=== PATIENT | male | born 1995 | race Caucasian/White ===

== ENCOUNTER 2024-09-19 12:05 | Outpatient (RCR) | payer OTHER, SELFPAY ==
--- NOTE | 2024-09-21 09:50 | HO.PHP ---
Desmond Ibanez called to report he will not show up to [facility] on 09/20/24, his scheduled start date. Desmond was again absent on 09/21/24. Pt did not call so policy writer reached out to Desmond, left him a voicemail. Pt did not call back so a call was made to his [facility] located on [address] [place] [address] . Staff at the fci reported Desmond was in bed sleeping, no safety concerns. Staff at the fci was informed that Desmond would be discharged from [facility] due to his inability to start the program and attend as agreed upon at intake, Desmond can call to reschedule a start date and intake should he decide he can attend the 2 week program to completion in the future. Staff at [facility] stated they will inform Desmond.
== END 2024-09-19 23:59 | disposition home or self-care (01) ==
LOC: HO.PHPA 12:05
PROVIDERS: Visit Provider Psychiatry & Neurology Psychiatry
DX: F31.9 Bipolar disorder, unspecified (principal); F43.10 Post-traumatic stress disorder, unspecified
CPT/HCPCS: 90791

== ENCOUNTER 2025-05-02 13:11 | Outpatient (AMB) | payer OTHER, SELFPAY ==
--- OUTSIDE RECORDS SUMMARY | 2025-04-27 11:06 | XMS_ITS | Encounter Summary ---
Author Organization [facility] Address [address] [place] [address] Care Team Providers Care Corporate Risk Analyst Name Role Phone Sosa Yamile Primary Care Provider [phone] Reason for Referral * Consultation (Routine) - Authorized Specialty Diagnoses / Procedures Referred By Contact Referred To Contact Podiatry / Orthopaedic Surgery Diagnoses Sprain of left ankle Osmani Escobar PA [address] [place] [id number] Phone: tel: fax: Orthopedic Surgery [facility] [address] [address] Phone: tel: fax: Referral ID Status Reason Start Date Expiration Date Visits Requested Visits Authorized [id number] Authorized Specialty Services Required 04/27/2025 04/27/2026 1 1 Reason for Visit * Reason Comments Ankle Pain Encounter Details Date Type Department Care Team (Late st Contact Info) Description 04/27/2025 11:06 AM EDT - 04/27/2025 11:53 AM EDT Emergency [facility] Emergency [address] [place] [address] Sprain of left ankle, initial encounter (Primary Dx) Discharge Disposition: Home or Self Care Social History Tobacco Use Types Packs/Day Years Used Date Smoking Tobacco: Every Day Cigarettes Smokeless Tobacco: Never Alcohol Use Standard Drinks/Week Comments Not Currently 0 (1 standard drink = 0.6 oz pur e alcohol) Interpersonal Safety Answer Date Record ed Physical Abuse 03/21/2025 Verbal Abuse 03/21/2025 Sex and Gender Information Value Date Recorded Sex Assigned at Male 09/05/2024 12:56 PM EST Legal Sex Male 8:58 AM EST Gender Identity Male 09/05/2024 12:56 PM EST Sexual Orientation Straight 09/05/2024 12 :56 PM EST documented as of this encounter Last Filed Vital Signs Vital Sign Reading Time Taken Comments Blood Pressure 141/105 04/27/2025 10:45 AM EDT Pulse 114 04/27/2025 10:45 AM EDT Temperature 36.9 C (98.4 F) 04/27/2025 10:45 AM EDT Respiratory Rate 22 04/27/2025 10:45 AM EDT Oxygen Saturation 99% 04/27/2025 10:45 AM EDT Inhaled Oxygen Concentration - - Weight 127 kg (280 lb) 04/27/2025 10:45 AM EDT Height 180.3 cm (5' 11 ) 04/27/2025 10:45 AM EDT Body Mass Index 39.05 04/27/2025 10:45 AM EDT documented in this encounter Discharge Summaries * Hernandez Jeffries RN - 04/27/2025 11:53 AM EDT Pt seen and cleared for d/c by ED provider, d/c instructions reviewed. Rx'd medication education provided, all questions answered. Pt assisted to [employer] via wheelchair, left without incident. documented in this encounter Discharge Instructions * Discharge Instructions* GEORGE Powell - 04/27/2025 11:22 AM EDT X-ray showing no acute fracture, signs of old injury are present Use crutches and be nonweightbearing for the next several days Can transition to crutches and brace after that but should be off the crutches within 1 week Follow-up with orthopedist if pain persist greater than 1 to 2 weeks Take pain medicine as needed as prescribed Ice therapy twice a time for pain as needed as directed * Attachments The following attachments cannot be sent through Care Everywhere. * Ankle Sprain ([place]) * Ankle Sprain: Rehab Exercises ([place]) documented in this encounter Medications at Time of Discharge albuterol HFA (PROAIR HFA ; PROVENTIL HFA ; VENTOLIN HFA) 90 mcg/actuation inhaler Inhale by mouth. 10/12/2023 bacitracin 500 unit/gram ointment 06/12/2024 busPIRone (BUSPAR) 30 mg tablet 09/01/2024 cetirizine (ZyrTEC) 10 mg tablet Take 1 tablet (10 mg total) by mouth. 10/12/2023 clotrimazole-betamet hasone (LOTRISONE) 1-0.05 % cream 03/14/2024 Daily Fiber, psyllium-aspart, 3 gram powder in packet 06/26/2024 famotidine (PEPCID) 20 mg tablet 04/12/2024 ketorolac (TORADOL) 10 mg tablet Take 1 tablet (10 mg total) by mouth every 6 (six) hours if needed for moderate pain for up to 5 days. 20 tablet 04/27/2025 lamoTRIgine (LaMICtal) 25 mg tablet Take 1 tablet (25 mg total) by mouth 1 (one) time each day for 7 days, THEN 1 tablet (25 mg total) 2 (two) times a day. 67 each 03/23/2025 lidocaine (LIDODERM) 5 % patch 06/28/2024 magnesium oxide 500 mg capsule Take 1 capsule by mouth at bedtime. 07/14/2024 omeprazole (PriLOSEC) [address] capsule Take 1 capsule (20 mg total) by mouth 1 (one) time each day. 07/21/2024 ondansetron (ZOFRAN) 4 mg tablet 06/28/2024 ondansetron ODT (ZOFRAN-ODT) 4 mg disintegrating tablet Take 1 tablet (4 mg total) by mouth. 10/07/2023 prazosin (MINIPRESS) 2 mg capsule Take 3 capsules (6 mg total) by mouth. 07/12/2023 promethazine (PHENERGAN) 50 mg tablet Take 1 tablet (50 mg total) by mouth. 03/09/2024 propranoloL (INDERAL) 20 mg tablet 09/12/2024 Siladryl SA 12.5 mg/5 mL liquid Take 5 mL (12.5 mg total) by mouth. 10/12/2023 simethicone (MYLICON,GAS-X) 125 mg capsule 06/30/2024 simvastatin (ZOCOR) 40 mg tablet 07/05/2024 Ventolin HFA 90 mcg/actuation inhaler 09/04/2024 documented as of this encounter Ordered Prescriptions Prescription Sig Dispense Quantity Refills Last Filled Start Date End Date ketorolac (TORADOL) 10 mg tablet Take 1 tablet (10 mg total) by mouth every 6 (six) hours if needed for moderate pain for up to 5 days. 20 tablet 04/27/2025 documented in this encounter Discharge Disposition Disposition Code Departure Means Destination Comment s Home or Self Care documented in this encounter Progress Notes * Hernandez Jeffries RN - 04/27/2025 11:53 AM EDT Air cast applied, crutches education provided. Hernandez Jeffries RN 04/27/25 1153 * Reanna Salgado RN - 04/27/2025 10:39 AM EDT Four days ago he was in the gym and rolled his left ankle. Swelling noted. * GEORGE Powell - 04/27/2025 10:30 AM EDT HPI Chief Complaint Patient presents with Ankle Pain HPI left ankle pain and swelling after rolling it while at the gym yesterday. States he injured hisankle before. Has been able to bear weight but with some discomfort. Reports some swelling but no bruising bleeding numbness tingling weakness. No other injuries. [place] Coma Scale Score: 15 Patient History Past Medical History: Diagnosis Date Anxiety Asthma Chronic kidney disease Depression Sleep apnea Past Surgical History: Procedure Laterality Date ESOPHAGOGASTRODUODENOSCOPY No family history on file. Social History Tobacco Use Smoking status: Every Day Types: Cigarettes Smokeless tobacco: Never Substance Use Topics Alcohol use: Not Currently Drug use: Yes Types: Marijuana/Cannabis Review of Systems Review of Systems Physical Exam ED Triage Vitals [04/27/25 1045] Temp Heart Rate Resp BP 36.9 ??C (98.4 ??F) (!) 114 22 (!) 141/105 SpO2 Temp Source Heart Rate Source Patient Position 99 % Oral -- Sitting BP Location FiO2 (%) Right arm;Upper -- Physical Exam GENERAL: Well developed, no acute distress, morbidly obese HEENT: Normocephalic and atraumatic, EOMI NECK: Supple, trachea is midline RESP: No respiratory distress after initially being documented tachypneic CARDIOVASCULAR: Regular rate after initially being documented tachycardic GASTROINTESTINAL: Abdomen is soft, non distended MUSCULOSKELETAL: Left ankle swelling and tenderness over the lateral malleolus, distal CMS intact, limited range of motion secondary to pain but can plantarflex and dorsiflex SKIN: Warm and dry NEUROLOGIC: At baseline, no acute focal deficits PSYCHIATRIC: Calm and cooperative ED Course & MDM Clinical Impressions as of 04/27/25 1217 Sprain of left ankle, initial encounter Medical Decision Making DDX: Fracture, dislocation, sprain, strain, other soft tissue injuries Vital signs reviewed, tachycardia and tachypnea documented but normal on physical exam likely elevated during triage due to exertion and morbid obesity Pulse oximetry reviewed and found to be > 94% on room air Physical exam as above Nursing notes reviewed X-rays negative for obvious fracture dislocation acute bony abnormality chronic osseous abnormalitynoted but no point tenderness over this area Social determinants of health considered including housing follow-up social and financial support Patient deemed appropriate for discharge with symptomatic treatment, recommendations to follow-up with primary care doctor / specialist with return precautions provided Procedures Procedure: Splint Application Distal CMS intact prior to splint Stirrup brace applied and fitted appropriately by myself or under my supervision from another staffmember of the ED Distal CMS intact after splint Crutches provided GEORGE Powell 04/27/25 1240 Cosigned by Liyah Patel MD at 04/27/2025 8:42 PM EDT documented in this encounter Plan of Treatment Scheduled Referrals Name Type Priority Associated Diagnoses Order Schedule Ambulatory referral to Orthopedic Outpatient Referral Routine 1 Occurrence s starting 04/27/2025 until 04/27/2026 documented as of this encounter Procedures Procedure Name Priority Date/Time Associated Diagnosis Comments XR ANKLE 3+ VIEWS LEFT STAT 04/27/2025 11:00 AM EDT documented in this encounter Results * XR Ankle 3+ Views Left (04/27/2025 11:00 AM EDT) Anatomical Region Laterality Modality Lower Extremities, Ankle Left Radiogr aphic Imaging 04/27/2025 11:2 1 AM EDT Impressions 04/27/2025 11:22 AM EDT FINDINGS/IMPRESSION: Soft tissue swelling without evidence for acute fracture. Normal alignment. There is a osseous fragment in the dorsal soft tissues anterior to the talus that may be from remote injury. -------- FINAL REPORT -------- Dictated By: Martín Lux Dictated Date: 04/27/2025 11:21 ET Assigned Physician: Martín Lux Reviewed and Electronically Signed By: Martín Lux Signed Date: 04/27/2025 11:22 ET Workstation ID: [id number] Transcribed By: Self Edit Transcribed Date: 04/27/2025 11:21 ET Narrative 04/27/2025 11:22 AM EDT XR ANKLE 3+ VIEWS LEFT INDICATION: pain TECHNIQUE: XR ANKLE 3+ VIEWS LEFT COMPARISON: No priors available. Procedure Note Martín Lux MD - 04/27/2025 XR ANKLE 3+ VIEWS LEFT INDICATION: pain TECHNIQUE: XR ANKLE 3+ VIEWS LEFT COMPARISON: No priors available. IMPRESSION: FINDINGS/IMPRESSION: Soft tissue swelling without evidence for acutefracture. Normal alignment. There is a osseous fragment in the dorsalsoft tissues anterior to the talus that may be from remote injury. -------- FINAL REPORT -------- Dictated By: Martín Lux Dictated Date: 04/27/2025 11:21 ET Assigned Physician: Martín Lux Reviewed and Electronically Signed By: Martín Lux Signed Date: 04/27/2025 11:22 ET Workstation ID: [id number] Transcribed By: Self Edit Transcribed Date: 04/27/2025 11:21 ET us Delta Baker MD IMG XR PROCEDURES Final Result documented in this encounter Visit Diagnoses Diagnosis Sprain of left ankle, initial encounter- Primary documented in this encounter Administered Medications Inactive Administered Medications - up to 3 most recent administrations Medication Order MAR Action Action Date Dose Rate Site ketorolac (TORADOL) injection 30 mg 30 mg, intramuscular, Once, On Wed04/27/25 at 1123, For 1 dose Given 04/27/2025 11:46 AM EDT 30 mg Right Deltoid documented in this encounter Active and Recently Administered Medications Times are shown in EDT. Scheduled Medication Order 04/25/2025 04/26/2025 04/27/2025 ketorolac (TORADOL) injection 30 mg (COMPLETED) 30 mg, intramuscular, Once, On Wed04/27/25 at 1123, For 1 dose 1146 (Given - Provid er: Hernandez Jeffries RN) documented in this encounter Orders Medications Ordered That Elder ht Not Have Been Administered Count Last Ordered Date First Ordered Date ketorolac (TORADOL) injection 30 mg 1 04/27 General Supply Count Last Ordered Date First Or dered Date GENERAL SUPPLY 1 04/27/2025 documented in this encounter Care Teams Corporate Risk Analyst Relationship Specialty Start Date End Date Yamile Swan [address] [facility] [address] [place] [id number] PCP - General Family Medicine 09/07/24 documented as of this encounter
--- NOTE | 2025-05-02 13:24 | A.OFFVIS_ITS ---
Vital Signs 05/02/25 13:25 Height 5 ft 11 in Weight 332 lb BMI 46.3 BP 150/100 H Blood Pressure Location Rt radial Position Sitting Respiration 16 Pulse Oximetry (%) 93 Intake Visit Reasons: ENP: Seizures Tax Map Technician Required: No Allergies No Known Allergies (No Known Allergies*) Allergy (Unverified 04/25/20 17:12) HPI Comments Details: This is a 29-year-old male patient here today for a seizure evaluation. According to referral notes from primary care, he had a seizure disorder from age [age] which had resolved until a recent episode. He had been admitted to [facility] where he underwent multiple testing including an MRI of the brain, CT scan, EKG, and ECG as well as brain function testing . According to the patient, all results were negative though there are no reports attempts to referral information. He was started on lamotrigine 25 mg daily for 7 days and then given a 90 day prescription. He also has a history of migraine headaches which he has been experiencing for a long time. He does note hitting of his head which may contribute. Today the patient reports, that he was smoking his weed pen and he recalls staring into space and then awakening having had bitten his tongue with blood then all over him. He was disoriented. He was brought to [facility] where he believes that he saw neurology. He was there for about 3-4 days though he is not what the findings were on the testing they performed. He cannot recall any triggers for this event aside from some added stress from another member of the penitentiary where he resides. He is currently taking lamotrigine 25mg twice daily which is what he had taken when he was younger. When he was younger, he recalls his seizures being pretty bad . He often would awake in the ER after having them. He also reports having migraines for the majority of his life since he can remember. They are currently occurring every other week lasting approximately 45 minutes to an hour. Symptoms include severe pain, sensitivity to light and sound, nausea, and dizziness. He primarily has pain to the right retro-orbital area or left occipital area. He has been using Tylenol for relief with only minimal efficacy. He is not currently taking anything prescription for his migraine headaches. Seizure background information: Onset of seizures: 8 years old Date of last seizure: About 1-2 months ago Seizure type: Generalized Aura/warning signs:None Postictal period:Disoriented Triggers:Stress Last brain imaging: Within the last couple of months at [facility] Last EEG:Within the last couple of months at [facility] Current medications:Lamotrigine 25mg twice daily Compliance with medications:Taking with good compliance History of brain infection: No History of significant illness or hospitalization:Not other than for seizures that he is aware of History of stroke of brain bleed:No but notes a brain injury after a physical adult History of pre-term : He is not aware but does note that he was resuscitated after History of learning disability:Yes History of developmental delay:Yes, notes some speech and motor delays History of IEP in school:Yes Years of schooling completed:12 Family history of seizure:Reports a significant family history of seizures (his mother, paternal grandfather and 3 of his siblings). Driving status:No Family/social support:Still in contact with his siblings Social/medical services within the home:Currently lives in a penitentiary through [facility] Medical History (Updated 05/02/25 @ 14:14 by Margaret Gudino CNP) Migraine Seizures Social History Household Members: Other Household Members Other:: Pt resides in a group living environment Review of Systems Const All systems reviewed & are unremarkable except as noted in HPI and below Physical Exam Vital Signs: Last Vital Signs Resp 16 05/02/25 13:25 BP 150/100 H 05/02/25 13:25 Pulse Ox 93 05/02/25 13:25 BMI result Body Mass Index 46.3 Const General: cooperative, healthy appearing, comfortable and no acute distress Nutritional Appearance: well nourished Orientation/consciousness: patient oriented x3 Limitations: no limitations HEENT Head: Yes normal to inspection and Yes normocephalic Eyes General: appearance normal, both eyes and all related structures Visual Zepeda: normal visual zepeda by confrontation Alignment and Position: alignment normal Periorbital: periorbital findings normal Eyelids: Yes eyelids normal Conjunctivae: conjunctivae normal Sclerae: sclerae normal Neck Neck: Yes normal visual inspection and Yes full ROM General: Yes no CVA tenderness Back/Spine/Pelvis Back: no CVA tenderness Cervical Spine: normal cervical lordosis Thoracic/Lumbar Spine: thoracic and lumbar spine normal to inspection Neuro General: patient oriented x3 and deep tendon reflexes 2+ bilaterally Cranial nerves: Yes CN's II-XII intact bilaterally and Yes Facial sensation intact/muscles of mastication intact Cognition (Neuro): normal cognition Gait exam (Neuro): Normal gait present Motor exam (neuro): 5/5 motor strength present throughout and no tremor noted Sensory Exam: double simultaneous stimulation for sensation normal Romberg Test: Negative Pupils: Normal pupillary reactivity/response: bilateral Psych Appearance: grossly normal Mental Status: mental status grossly normal Speech and movement: Normal speech and movement present and Clear speech present Affect: normal affect Attitude: cooperative Thought process: Normal thought process present Thought content: Normal thought content present Insight: Good insight present (Psych) Judgement: Good judgement present (Psych) Assessment & Plan Assessment & Plan (1) History of seizure: Code(s): Z87.898 - Personal history of other specified conditions Category: Medical (2) Migraine without aura and without status migrainosus, not intractable: Code(s): G43.009 - Migraine without aura, not intractable, without status migrainosus Category: Medical Plan This is a 29-year-old male patient here today for a seizure evaluation. According to referral notes from primary care, he had a seizure disorder from age [age] which had resolved until a recent episode. He had been admitted to [facility] where he underwent multiple testing including an MRI of the brain, CT scan, EKG, and ECG as well as brain function testing . Unfortunately I have no access to these records/test reports. He was placed on lamotrigine 25 mg twice daily as this was the medication he had done well with in the past as a child. For now, I will keep his dosing the same until we have medical records from [facility] including MRIs and EEGs to make further decisions for medication dosing. His lamotrigine dose is very low and depending on the findings of the studies, we will consider increasing the dose. Can not exclude nonepileptic event at this time. Based on the description of the event however epileptic event is very possible. We did discuss his migraine history today. He currently does not have any acute therapy aside from Tylenol which is only minimally effective. I will prescribe sumatriptan 50 mg for abortive measures. We will follow up in 2 months at which time we can review the records from [facility] together and make further decisions regarding his seizure management. -obtain reports from [facility] including MRI of the brain, CT of the brain, an EEG which will help to guide further management -for now, continue lamotrigine 25 mg twice daily and monitor for seizure signs and symptoms at home -trial of sumatriptan 50 mg as needed for migraine abortive therapy -follow up in 2 months once we have obtained records from [facility] Coding Level of Care Code New Pt Level 4 (21519) Diagnoses History of seizure Z87.898 Migraine without aura and without status migrainosus, not intractable G43.009
[2025-05-02 13:25] VITALS: BP 150/100; RESP 16; O2SAT 93; BMI 46.3
--- OUTSIDE RECORDS SUMMARY | 2025-05-02 15:32 | XMS_ITS ---
Author Name [facility] Organization Unknown Encounters Encounter Type Encounter Reason Primary Diagnosis Location Date Ambulatory [facility] 04/30/2025
--- OUTSIDE RECORDS SUMMARY | 2025-05-02 15:33 | XMS_ITS | Clinical Summary ---
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 Immature Granulocytes Absolute 0.12(H) 0.00 - 0.03 K/mcL LAB HEMETOLOGY METHOD 03/21/2025 12:26 AM [facility] Blood Venous blood specimen / Unknown Venipuncture / Unknown 03/21/2025 12:07 AM EDT 03/21/2025 12:20 AM EDT us Alonso Deluca MD LAB BLOOD ORDERABLES Final Result Performing Organization Address [facility]/ZIP Co de Phone Number [facility] [address] [place] [address], * Prolactin (03/21/2025 12:07 AM EDT) Prolactin 7.30 2.50 - 17.40 ng/mL LAB CHEMISTRY METHOD 03/21/2025 3:18 AM EDT [facility] Blood Venous blood specimen / Unknown Venipuncture / Unknown 03/21/2025 12:07 AM EDT 03/21/2025 12:20 AM EDT Alonso Deluca MD LAB BLOOD ORDERABLES Final Result Performing Organization Address [facility] Co de Phone Number [facility] [address] [place] [address], * APTT (03/21/2025 12:07 AM EDT) Pathologist [facility] aPTT 32.9 24.1 - 39.3 sec LAB COAGULATION METHOD 03/21/2025 12:35 AM EDT [facility] Blood Venous blood specimen / Unknown Venipuncture / Unknown 03/21/2025 12:07 AM EDT 03/21/2025 12:19 AM EDT Alonso Deluca MD LAB BLOOD ORDERABLES Final Result Performing Organization Address City/[facility]/ZIP Co de Phone Number [facility] [address] [place] [address], * Protime-INR (03/21/2025 12:07 AM EDT) Protime 11.0 10.6 - 13.9 sec LAB COAGULATION METHOD 03/21/2025 12:35 AM EDT [facility] INR 0.9 LAB COAGULATION METHOD 03/21/2025 12:35 AM EDT [facility] Blood Venous blood specimen / Unknown Venipuncture / Unknown 03/21/2025 12:07 AM EDT 03/21/2025 12:19 AM EDT Alonso Deluca MD LAB BLOOD ORDERABLES Final Result Performing Organization Address [facility]/ZIP Co de Phone Number [facility] [address] [place] [address], [place] [phone] * D-dimer, quantitative (03/21/2025 12:07 AM EDT) D-Dimer, Quant (D-DU) <150 <=230 ng/mL DDU LAB COAGULATION METHOD 03/21/2025 2:26 AM EDT [facility] Blood Venous blood specimen / Unknown Venipuncture / Unknown 03/21/2025 12:07 AM EDT 03/21/2025 12:19 AM EDT Narrative [facility] - 03/21/2025 2:26 AM EDT D-Dimer <230 ng/mL (D-Dimer units) is the threshold for exclusion of DVT/PE. D-Dimer may be elevated in: Critically ill, severely infected, trauma patients, DIC, acute CVA, acute HI, unstable angina, AF, old age, , and smoking. D-Dimer may be decreased with: Initiation of heparin therapy and oral anticoagulants. us Alonso Deluca MD LAB BLOOD ORDERABLES Final Result Performing Organization Address [facility]/ZIP Co de Phone Number [facility] [address] [place] [address], [place] [phone] from Last 3 Months Insurance [facility] [place] [address] Advance Directives * Full Code - Default (Latest Code Status on File) Date Activated Date Inactivated Comments 03/21/2025 3:17 AM 03/22/2025 7:51 PM This is orde r is used when code status has not been discussed with the patient, or code status is otherwise unknown/unconfirmed To update the patient's code status, place a code status order. Do not modify or discontinue any currently active code status orders. Care Teams Vp Cardiovascular Service Line Relationship Specialty Start Date End Date Yamile Swan [address] [facility] [address] [place] [address] PCP - General Family Medicine 09/07/24
== END 2025-05-02 13:52 | disposition home or self-care (01) ==
LOC: HO.HSM 13:11
PROVIDERS: PCP Nurse Practitioner Family; Visit Provider Nurse Practitioner
DX: Z87.898 Personal history of other specified conditions (principal); G43.009 Migraine without aura, not intractable, without status migrainosus
CPT/HCPCS: 99204

== ENCOUNTER → 2025-05-02 13:11 | Outpatient (BNVA) | payer OTHER, SELFPAY | PROVIDERS: PCP Nurse Practitioner Family; Visit Provider Nurse Practitioner | DX: G43.909 Migraine, unspecified, not intractable, without status migrainosus (principal); Z87.898 Personal history of other specified conditions | CPT/HCPCS: 99202 ==

== ENCOUNTER 2025-07-02 13:11 | Outpatient (AMB) | payer OTHER, SELFPAY ==
--- OUTSIDE RECORDS SUMMARY | 2025-07-02 10:45 | XMS_ITS | Encounter Summary ---
Author Organization [facility] Address [address] [place] [address] Care Team Providers Care Monorail Operator Name Role Phone Yamile Swan Primary Care Provider [phone] Reason for Referral * Medications - Pending Review Specialty Diagnoses / Procedures Referred By Hernandez carlson Referred To Contact Diagnoses Hyperglycemia Prediabetes Brooklyn Pride MD [address] [place] [phone] Phone: tel: fax: Referral ID Status Reason Start Date Expiration Date V isits Requested Visits Authorized [id number] Pending Review 1 Reason for Visit * Reason Comments Consult Interested in medica tion * Consultation (Routine) - Authorized Specialty Diagnoses / Procedures Referred By Hernandez carlson Referred To Contact Bariatrics Diagnoses Morbid (severe) obesity due to excess calories (CMS/HCC V24, CMS/HCC V28) Procedures ID CONSULTATION OFFICE NEW/ESTAB PATIENT 30 MIN [place], Yamile [address] [place] [address] Phone: tel: fax: Bariatric Surgery - [place] [address] [facility] [address] [place] [address] Phone: tel: fax: Referral ID Status Reason Start Date Expiration Date V isits Requested Visits Authorized [id number] Authorized 06/27/2025 06/27/2026 1 1 Encounter Details Date Type Department Care Team (Late st Contact Info) Description 07/02/2025 10:45 AM EST Consult Bariatric Surgery - [address] [place] [address] Brooklyn Pride MD [address] [place] [phone] Hyperglycemia (Primary Dx); Class 3 severe obesity due to excess calories with serious comorbidity and body mass index (BMI) of 45.0 to 49.9 in adult (CMS/HCC V24, CMS/HCC V28); Obstructive sleep apnea syndrome; Fatty infiltration of liver; Prediabetes Social History Tobacco Use Types Packs/Day Years Used Date Smoking Tobacco: Every Day Cigarettes Smokeless Tobacco: Never Alcohol Use Standard Drinks/Week Comments Not Currently 0 (1 standard drink = 0.6 oz pur e alcohol) Interpersonal Safety Answer Date Record ed Physical Abuse Unrecognized value 03/21/2025 Verbal Abuse Unrecognized value 03/21/2025 Sex and Gender Information Value Date Recorded Sex Assigned at Male 09/05/2024 12:56 PM EST Legal Sex Male 8:58 AM EST Gender Identity Male 09/05/2024 12:56 PM EST Sexual Orientation Straight 09/05/2024 12 :56 PM EST documented as of this encounter Last Filed Vital Signs Vital Sign Reading Time Taken Comments Blood Pressure 109/76 07/02/2025 10:34 AM EST Pulse 114 07/02/2025 10:34 AM EST Temperature 36.6 C (97.8 F) 07/02/2025 10:34 AM EST Respiratory Rate - - Oxygen Saturation - - Inhaled Oxygen Concentration - - Weight 153 kg (337 lb) 07/02/2025 10:34 AM EST Height 180.3 cm (5' 11 ) 07/02/2025 10:34 AM EST Body Mass Index 47 07/02/2025 10:34 AM EST documented in this encounter Ordered Prescriptions Prescription Sig Dispense Quantity Refills Last Filled Start Date End Date tirzepatide, weight loss, (Zepbound) 2.5 mg/0.5 mL injectionIndicatio ns:Hyperglycemia,P rediabetes Inject 0.5 mL (2.5 mg total) under the skin every 7 (seven) days for 4 doses. 2 mL 07/02/2025 07/24/2025 documented in this encounter Progress Notes * Brooklyn Pride MD - 07/02/2025 10:45 AM EST Subjective: Patient ID: Desmond Ibanez is a 29 y.o. male. History of Present Illness The patient is a 29-year-old male who presents for evaluation of weight gain. He has been experiencing significant weight fluctuations since childhood, with a notable increase in the past year. His weight was previously stable around 180 to 190 pounds, but he has since gained over 100 pounds. This weight gain is attributed to stress, chronic kidney disease, and persistent nausea, which initially led to weight loss due to decreased food intake. Despite discontinuing Seroquel, he has been unable to lose weight. During the period of weight gain, his diet was high in bread, soda, alcohol, and sweets, often consuming 4 to 5 slices of bread throughout the day and engaging inbinge eating. Currently, he reports no binge eating and maintains a diet primarily consisting of salads. He also has sleep apnea and is currently on Lamictal and lithium. He was previously on metformin, which was discontinued due to potential kidney damage. He is not currently taking any medication for ADHD, except for buspirone. SOCIAL HISTORY Diet: Consumes salads currently. Previously consumed a lot of bread, candy, and engaged in binge eating. Alcohol: Consumed alcohol in the past. Coffee/Tea/Caffeine-containing Drinks: Consumed soda in the past. Attestation This is Brooklyn Pride MD, I have verbally consented Desmond Ibanez prior to the recording. I have advised Desmond Ibanez that he/she may object to the recording and require the recording to be turned off at any time. ROS: GENERAL: No malaise, significant unintentional weight loss, fever, chills or night sweats. HEENT: No changes in hearing or vision, no nose bleeds or other nasal problems. NECK: No lumps, goiter, pain or significant neck swelling RESPIRATORY: No cough, wheezing or shortness of breath CARDIOVASCULAR: No chest pain, leg swelling or palpitations. GI: No abdominal discomfort, nausea, vomiting, or change in bowel habits. : No dysuria, frequency or incontinence. SKIN: No lesions, rash or itching. HEMATOLOGY: No prolonged bleeding, easy bruisability. LYMPHOLOGY No swollen nodes. MUSCULOSKELETAL: No abnormalities. NEURO: No abnormalities. All other systems reviewed which are negative. PAST MEDICAL HISTORY: Patient Active Problem List Diagnosis Date Noted Syncope 03/21/2025 Obstructive sleep apnea syndrome 09/27/2024 CPAP (continuous positive airway pressure) dependence 09/27/2024 Chronic renal impairment, stage 3 (moderate) 09/27/2024 Gastroesophageal reflux disease without esophagitis 09/27/2024 Smoking history 09/27/2024 Obesity 01/24/2010 ADHD (attention deficit hyperactivity disorder) 01/02/2010 Known medical problems 01/02/2010 Mild intermittent asthma 01/02/2010 PTSD (post-traumatic stress disorder) 01/02/2010 Vitamin D deficiency 01/02/2010 PAST SURGICAL HISTORY: Surgical History[1] SOCIAL HISTORY: Social History Tobacco Use Smoking status: Every Day Types: Cigarettes Smokeless tobacco: Never Substance Use Topics Alcohol use: Not Currently FAMILY HISTORY: Family History[2] No family status information on file. MEDICATIONS: There are no discontinued medications. ACTIVE MEDICATIONS: Medications Taking[3] ALLERGIES: Current Allergies[4] PHYSICAL EXAM: Visit Vitals BP 109/76 Pulse (!) 114 Temp 36.6 ??C (97.8 ??F) (Temporal) Ht 1.803 m (71 ) Wt 153 kg (337 lb) BMI 47.00 kg/m?? Smoking Status Every Day BSA 2.63 m?? APPEARANCE: Alert and oriented and in no acute distress EYES: Conjunctiva normal and sclera normal and anicteric. NECK: Neck supple with no adenopathy. HEART: No JVD. LUNG: No retractions. LYMPH NODES: No gross cervical or clavicular lymphadenopathy. ABDOMEN: non-distended, EXTREMITIES: Extremities well perfused without clubbing, cyanosis, or edema. SKIN: Skin color and texture normal. No rashes. NEUROLOGIC: Alert and oriented ??3. No motor deficits in the extremities. LABS/IMAGING: NAFLD Fibrosis Score: -1.97 at 03/22/2025 5:31 AM Calculated from: SGOT/AST: 27 unit/L at 08/07/2024 1:47 PM SGPT/ALT: 47 unit/L at 08/07/2024 1:47 PM Serum Albumin: 4.3 g/dL at 08/07/2024 1:47 PM Platelets: 209 K/mcL at 03/22/2025 5:31 AM Age: 29 years BMI: 39.1 at 03/20/2025 11:39 PM Weight (recorded): 127.01 kg at 03/20/2025 11:39 PM Height: 180.30 cm at 03/20/2025 11:39 PM Has Diabetes: No ASSESSMENT: 1. Hyperglycemia 2. Class 3 severe obesity due to excess calories with serious comorbidity and body mass index (BMI)of 45.0 to 49.9 in adult (CMS/HCC V24, CMS/HCC V28) 3. Obstructive sleep apnea syndrome 4. Fatty infiltration of liver PLAN: 1. I discussed with the patient the different procedures available including the sleeve gastrectomy, the gastric bypass and the single anastomosis duodenal ileal bypass with sleeve. Indications, benefits, risks and complications were discussed. I also discussed with the patient the different medical options. I explained the mechanism of action, the potential adverse effects and the expected results. These included phentermine, topiramate, naltrexone, bupropion and the different GLP-1 medications. The patient has decided that he/she wants to try incretin-based therapy before bariatric surgery. If the patient is not able to lose a significant amount of weight, patient agrees to proceed with thebariatric surgery program. 2. 1. I reviewed with the patient different techniques to change the behavior towards food. Writtenmaterial was given to the patient can review these tools. I explained to the patient the need for night good sleep; the benefits of moderate intensity exercise half an hour to an hour a day, 4 to 5 days a week; and the importance of self-monitoring by weighing 3-5 times a week, and importance of practicing mindfulness when eating: what, how much and why. 2. The patient is a good candidate for medical weight management given a BMI of 47.00, class 3 obesity, with the above comorbid conditions. Patient remains dedicated to improving their health and quality of life as well as remaining physically active. I have had a long discussion with the patient regarding medical weight management which includes both oral medications including stimulants/appetite suppressants versus injectable GLP-1 medications. At this time, patient does not qualify for oral medication due to the following reasons -patient takes multiple psych medications that have potential increase in his side effects and potential risks when taken together with phentermine. We have decided to proceed with injectable GIP/GLP-1 medication -tirzepatide The SUMOUNT-tirzepatide study has shown that the medication is of benefit in the case of obstructive sleep apnea. [facility], 2023;[id number]. The risks and benefits of this medication were discussed in length with the patient. Benefits include weight loss and overall healthier lifestyle with he hopes of improving any co morbid conditions. Risks include nausea/vomiting, diarrhea, injection site reaction, gastroparesis. We have also discussed the potential for thyroid cancer and multiple endocrine neoplasia; patient denies family history of either condition. We discussed that this medication should be used long-term and that obesity will be treated as a chronic condition. If and when patient stops this medication weight may come back. The patient will follow-up every 4 weeks for a weight check and potential dose titration The patient will also continue to follow-up with the dietitian to ensure that they are working on proper eating habits in addition to using the medication. 3. The patient will let us know in 4 weeks if the medication is being effective or if the patient is having side effects. The dose will be adjusted depending upon the response and the presence of side effects. Follow-up in 4 months. [1] Past Surgical History: Procedure Laterality Date ESOPHAGOGASTRODUODENOSCOPY [2] No family history on file. [3] No outpatient medications have been marked as taking for the 07/02/25 encounter (Consult) with Brooklyn Pride MD. [4] Allergies Allergen Reactions Fluorouracil-Adhesive Bandage Nicotine Hives NICOTINE PATCH Wellbutrin [Bupropion Hcl] Unknown documented in this encounter Plan of Treatment Upcoming Encounters Date Type Department Care Team (Late st Contact Info) Description 10/04/2025 12:30 PM EST Consult Bariatric Surgery - [address] [place] [phone] [address]a Jones, RD [address] [place] [address] 11/01/2025 9:30 AM EDT Office Visit Bariatric Surgery - [place] [address] [facility] [address] [place] [address] Brooklyn Pride MD [address] [place] [id number] Scheduled Orders Name Type Priority Associated Diagnoses Orde r Schedule Hemoglobin A1c Lab Routine Hyperglycemia 1 Occurrences starting 07/02/2025 until 07/02/2026 documented as of this encounter Visit Diagnoses Diagnosis Hyperglycemia- Primary Other abnormal glucose Class 3 severe obesity due to excess calories with serious comorbidity and body mass index (BMI) of 45.0 to 49.9 in adult (CMS/HCC V24, CMS/HCC V28) Obstructive sleep apnea syndrome Obstructive sleep apnea (adult) (pediatric) Fatty infiltration of liver Prediabetes Other abnormal glucose documented in this encounter Care Teams Monorail Operator Relationship Specialty Start Date End Date Yamile Swan [address] [facility] [address] [place] [address] PCP - General Family Medicine 09/07/24 documented as of this encounter
--- NOTE | 2025-07-02 13:12 | A.OFFVIS_ITS ---
Vital Signs 07/02/25 13:17 Height 5 ft 11 in Weight 337 lb BMI 47.0 BP 136/80 Blood Pressure Location Rt brachial Position Sitting Respiration 16 Pulse 85 Pulse Source Pulse Oximeter Pulse Oximetry (%) 96 Oxygen Delivery Method Room Air Intake Visit Reasons: 2m Tandem Operator Required: No Allergies bupropion (From Wellbutrin) Adverse Reaction (Unknown, Verified 07/02/25 13:19) Unknown HPI Comments Details: This is a 29-year-old male patient here today for a follow-up visit for seizures. I saw Desmond on 05/02/2025 at which time we discussed his seizure history which started at approximately age 8 and he continued to have seizures until age 15. Up until a recent episode he has been seizure-free since that time. He had been admitted to [facility] where he underwent multiple testing including an MRI of the brain, CT scan, EKG, and ECG as well as brain function testing . According to the patient, all results were negative though there are no reports attempts to referral information. He was started on lamotrigine 25 mg daily for 7 days and then given a 90 day prescription. He also has a history of migraine headaches which he has been experiencing for a long time. He does note hitting of his head which may contribute. At the time of our last visit together, he reported that while he was smoking his ?weed pen he had been noted to be staring in space and bit his tongue with blood all over him during the event. He was disoriented and this is when he is brought to [facility] and was seen by Neurology. He was there for about 3-4 days though he is not what the findings were on the testing they performed. He could not identify any triggers for the event aside from some added stress from another family member at the alf which she was living. He was taking lamotrigine 25 mg twice daily as prescribed. He had also been taking this when he was younger for his seizure history. When he was younger, he recalls his seizures being pretty bad . He often would awake in the ER after having them. We also discussed his migraine history. He had reported migraines for the majority of his life from what he can remember. They were occurring every other week lasting approximately 45 minutes to an hour. Symptoms included severe pain, sensitivity to light and sound, nausea, and dizziness. He primarily was getting pain in the right retro-orbital area or left occipital area. He is using Tylenol for relief with only minimal effect. He was not on anything prescription at the time. I did prescribe him sumatriptan at the time of his last visit. I have recommended obtaining records from [facility] before proceeding with any further treatment options. I did however give him the prescription for sumatriptan. Records from [facility] showed a brain MRI without contrast performed 03/21/2025 which was normal. A routine EEG performed at [facility] on 03/21/2025 was also within normal limits. Desmond tells me today that since the time of our last visit, he has not had any further seizure concerns. He has not had any further staring episodes, tongue biting episodes, urinary incontinence, loss of awareness, or lip-smacking episodes. He has been taking his lamotrigine 25 mg twice a day as prescribed without any gaps in therapy. He is tolerating the lamotrigine well. He denies any changes to his environmental factors and has not had any health update since our last visit. He is currently not driving. Seizure background information: Onset of seizures: 8 years old Date of last seizure: About 1-2 months ago Seizure type: Generalized Aura/warning signs:None Postictal period:Disoriented Triggers:Stress Last brain imaging: Within the last couple of months at [facility] Last EEG:Within the last couple of months at [facility] Current medications:Lamotrigine 25mg twice daily Compliance with medications:Taking with good compliance History of brain infection: No History of significant illness or hospitalization:Not other than for seizures that he is aware of History of stroke of brain bleed:No but notes a brain injury after a physical adult History of pre-term : He is not aware but does note that he was resuscitated after History of learning disability:Yes History of developmental delay:Yes, notes some speech and motor delays History of IEP in school:Yes Years of schooling completed:12 Family history of seizure:Reports a significant family history of seizures (his mother, paternal grandfather and 3 of his siblings). Driving status:No Family/social support:Still in contact with his siblings Social/medical services within the home:Currently lives in a alf through [facility] Medical History (Updated 05/02/25 @ 14:14 by Margaret Gudino CNP) Migraine Seizures Social History Household Members: Other Household Members Other:: Pt resides in a group living environment Review of Systems Const All systems reviewed & are unremarkable except as noted in HPI and below Physical Exam Const General: cooperative, healthy appearing, comfortable and no acute distress Nutritional Appearance: well nourished Orientation/consciousness: patient oriented x3 Limitations: no limitations HEENT Head: Yes normal to inspection and Yes normocephalic Eyes General: appearance normal, both eyes and all related structures Visual Zepeda: normal visual zepeda by confrontation Alignment and Position: alignment normal Periorbital: periorbital findings normal Eyelids: Yes eyelids normal Conjunctivae: conjunctivae normal Sclerae: sclerae normal Neck Neck: Yes normal visual inspection and Yes full ROM General: Yes no CVA tenderness Back/Spine/Pelvis Back: no CVA tenderness Cervical Spine: normal cervical lordosis Thoracic/Lumbar Spine: thoracic and lumbar spine normal to inspection Neuro General: patient oriented x3 and deep tendon reflexes 2+ bilaterally Cranial nerves: Yes CN's II-XII intact bilaterally and Yes Facial sensation intact/muscles of mastication intact Cognition (Neuro): normal cognition Gait exam (Neuro): Normal gait present Motor exam (neuro): 5/5 motor strength present throughout and no tremor noted Sensory Exam: double simultaneous stimulation for sensation normal Romberg Test: Negative Pupils: Normal pupillary reactivity/response: bilateral Psych Appearance: grossly normal Mental Status: mental status grossly normal Speech and movement: Normal speech and movement present and Clear speech present Affect: normal affect Attitude: cooperative Thought process: Normal thought process present Thought content: Normal thought content present Insight: Good insight present (Psych) Judgement: Good judgement present (Psych) Assessment & Plan Assessment & Plan (1) History of seizure: Code(s): Z87.898 - Personal history of other specified conditions Category: Medical (2) Migraine without aura and without status migrainosus, not intractable: Code(s): G43.009 - Migraine without aura, not intractable, without status migrainosus Category: Medical Plan This is a 29-year-old male patient here today for a seizure evaluation. His imaging and EEG from [facility] was within normal limits and he has not had any clinical events since time of our last visit that he is aware of. He has been compliant with lamotrigine in his tolerating it well. For now, we will continue him on lamotrigine 25 mg twice daily although this is a substantially low dose. Right now however, there was no evidence on MRI or EEG that increases indicated. The patient will notify the office should he have any questions for seizure-like activity and we reviewed common signs of seizure activity together. Otherwise follow up in 6 months. For migraine management, can continue as-needed sumatriptan. -for now, continue lamotrigine 25 mg twice daily and monitor for seizure signs and symptoms at home -sumatriptan 50 mg as needed for migraine abortive therapy -follow up in 6 months or sooner if needed Coding Level of Care Code Est Pt Level 3 (39869) Diagnoses History of seizure Z87.898 Migraine without aura and without status migrainosus, not intractable G43.009
[2025-07-02 13:17] VITALS: BP 136/80; PULSE 85; RESP 16; O2SAT 96; BMI 47.0
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
== END 2025-07-02 13:27 | disposition home or self-care (01) ==
LOC: HO.HSM 13:12
PROVIDERS: PCP Nurse Practitioner Family; Visit Provider Nurse Practitioner
DX: Z87.898 Personal history of other specified conditions (principal); G43.009 Migraine without aura, not intractable, without status migrainosus
CPT/HCPCS: 99213

== ENCOUNTER → 2025-07-02 13:11 | Outpatient (BNVA) | payer OTHER, SELFPAY | PROVIDERS: PCP Nurse Practitioner Family; Visit Provider Nurse Practitioner | DX: G43.009 Migraine without aura, not intractable, without status migrainosus (principal); Z87.898 Personal history of other specified conditions | CPT/HCPCS: 99212 ==